=== PATIENT | female | born 1955 | race Two or more races ===

== ENCOUNTER 2019-03-13 12:19 | Emergency (ER) | payer MEDICAID, OTHER ==
[~2019-03-13] VITALS: Ht 160 cm; Wt 90.7 kg
[2019-03-13 16:04] VITALS: BP 140/83
[2019-03-13] MEDS ORDERED: ACETAMINOPHEN 325 MG TAB PO ONE (16:45)
== END 2019-03-13 17:02 | disposition home or self-care (01) ==
LOC: ER 12:28
DX: S33.5XXA Sprain of ligaments of lumbar spine, initial encounter (principal); M79.601 Pain in right arm; I10 Essential (primary) hypertension; Z90.49 Acquired absence of other specified parts of digestive tract; Z90.710 Acquired absence of both cervix and uterus; Z90.89 Acquired absence of other organs; X58.XXXA Exposure to other specified factors, initial encounter; Y93.89 Activity, other specified; Y99.8 Other external cause status; Y92.89 Other specified places as the place of occurrence of the external cause

== ENCOUNTER 2020-05-06 11:12 | Emergency (ER) | payer MEDICARE, MEDICAID ==
[~2020-05-06] VITALS: Ht 157.5 cm; Wt 83.9 kg
[2020-05-06 11:23] VITALS: BP 152/70
[2020-05-06] MEDS ORDERED: ONDANSETRON ODT 4 MG TAB PO ONE (11:30)
== END 2020-05-06 12:41 | disposition home or self-care (01) ==
LOC: ER 11:12
DX: S09.90XA Unspecified injury of head, initial encounter (principal); I10 Essential (primary) hypertension; Z90.89 Acquired absence of other organs; Z90.49 Acquired absence of other specified parts of digestive tract; W19.XXXA Unspecified fall, initial encounter; Y93.89 Activity, other specified; Y99.8 Other external cause status; Y92.89 Other specified places as the place of occurrence of the external cause
CPT/HCPCS: 70450; 99284; Q0162

== ENCOUNTER 2023-02-14 21:18 | Emergency (ER) | payer MEDICARE, MEDICAID ==
[~2023-02-14] VITALS: Ht 160 cm; Wt 90.9 kg
[2023-02-15] MEDS ORDERED: HYDROcodone-ACET 5/325MG TAB PO ONE (01:45)
[2023-02-15] MEDS ORDERED: HYDR-4902 PO (01:49)
[2023-02-15 03:00] VITALS: BP 119/61; PULSE 71; RESP 16; O2SAT 98
== END 2023-02-15 03:12 | disposition home or self-care (01) ==
LOC: ER 21:20
DX: S13.9XXA Sprain of joints and ligaments of unspecified parts of neck, initial encounter (principal); S43.401A Unspecified sprain of right shoulder joint, initial encounter; I10 Essential (primary) hypertension; Z90.710 Acquired absence of both cervix and uterus; Z90.49 Acquired absence of other specified parts of digestive tract; Z98.890 Other specified postprocedural states; W18.09XA Striking against other object with subsequent fall, initial encounter; Y93.89 Activity, other specified; Y92.89 Other specified places as the place of occurrence of the external cause; Y99.8 Other external cause status
CPT/HCPCS: 72040; 73030